=== PATIENT | female | born 1990 | race Caucasian/White ===

== ENCOUNTER 2016-12-20 00:14 | Emergency (ER) | payer OTHER ==
[~2016-12-20] VITALS: Ht 154.9 cm; Wt 65.8 kg
[~2016-12-20 00:14] MED LIST: AMOXICILLIN500 M2 PO; AMOXICILLIN500 MG PO; ATARAX25 MG PO; BACTRIM DS 8001 TA1 PO; BENADRYL25 MG PO; CIPRO250 MG PO; CIPROFLOXACIN500 MG PO; CLEOCIN150 MG PO; CLINDAMYCIN HC300 MG PO; DIFLUCAN150 MG PO; DOXYCYCLINE100 M2 PO; EPI-PEN1 MG/ML; EXCEDRIN EXTRA1 EACH PO; FIORICET 325 MG1 TAB PO; FIORICET 50-301 EACH PO; FLAGYL500 MG PO; FLONASE 0.05% 121 EA NAS; FLUCONAZOLE100 MG PO; HYDROCODONE BIT1 T11 PO; HYDROCORTISONE30 GM PO; IBU800 MG PO; KEFLEX500 M1 PO; KEFLEX500 MG PO; MACROBID100 M1 PO; MOTRIN800 MG PO; MUCINEX600 MG PO; MULTI VITAMINS1 TAB PO; MULTIPLE VITAMI1 CAP PO; NITROFURANTOIN100 MG PO; PEN-VEE K500 MG PO; PEPCID20 MG PO; PREDNICOT20 MG PO; PREDNISONE20 MG PO; PRENATAL1 TA3 PO; TRAMADOL HCL50 MG PO; VIBRA-TAB100 MG PO; VIBRAMYCIN100 MG PO; ZITHROMAX Z PA250 MG PO; ZOFRAN ODT4 MG SL
[2016-12-20] MEDS ORDERED: Fioricet 325 MG1 TAB PO (01:35)
== END 2016-12-20 01:51 | disposition home or self-care (01) ==
LOC: ED 00:14
DX: G43.909 Migraine, unspecified, not intractable, without status migrainosus (principal); F17.200 Nicotine dependence, unspecified, uncomplicated; Z91.030 Bee allergy status; Z79.899 Other long term (current) drug therapy

== ENCOUNTER 2018-10-15 15:58 | Emergency (ER) | payer OTHER ==
[~2018-10-15] VITALS: Ht 154.9 cm; Wt 65.8 kg
[~2018-10-15 15:58] MED LIST changes: +Fioricet 325 MG1 TAB PO
[2018-10-15 15:59] VITALS: BP 122/79
[2018-10-15] MEDS ORDERED: ACYCLOVIR800 MG PO (16:58)
[2018-10-15 17:08] LABS: BILIRUBIN NEGATIVE (NEGATIVE); BLOOD 1+ (NEGATIVE); CLARITY CLEAR (CLEAR); COLOR YELLOW (YELLOW); GLUCOSE NEGATIVE (NEGATIVE); KETONE NEGATIVE (NEGATIVE); LEUKO ESTERASE NEGATIVE (NEGATIVE); NITRITE NEGATIVE (NEGATIVE); SPECIFIC GRAVITY 1.025 (1.005-1.030); UROBILINOGEN 0.2 E.U./dl (0.2-1.0)
[2018-10-15 17:16] LABS: BACTERIA TRACE; EPITHELIAL CELLS 0-2; MUCOUS 1+; WBC 0-2 wbc/hpf (0-5)
[2018-12-19] MEDS ORDERED: AMINOPHYLLIN200 MG PO (22:33)
== END 2018-10-15 17:45 | disposition home or self-care (01) ==
LOC: ED 15:58
PROVIDERS: Nurse Practitioner Family
DX: N76.6 Ulceration of vulva (principal); F17.200 Nicotine dependence, unspecified, uncomplicated; Z91.030 Bee allergy status; Z79.899 Other long term (current) drug therapy

== ENCOUNTER 2018-12-14 01:12 | Emergency (ER) | payer OTHER ==
[~2018-12-14] VITALS: Ht 154.9 cm; Wt 68.0 kg
[~2018-12-14 01:12] MED LIST changes: +ACYCLOVIR800 MG PO
[2018-12-14 01:15] VITALS: BP 117/60
[2018-12-14 02:03] LABS: BILIRUBIN NEGATIVE (NEGATIVE); BLOOD 3+ (NEGATIVE); CLARITY SL CLOUDY (CLEAR); COLOR ORANGE (YELLOW); GLUCOSE NEGATIVE (NEGATIVE); KETONE NEGATIVE (NEGATIVE)
[2018-12-14 02:04] LABS: LEUKO ESTERASE NEGATIVE (NEGATIVE); NITRITE POSITIVE (NEGATIVE); UROBILINOGEN 0.2 E.U./dl (0.2-1.0)
[2018-12-14 02:09] LABS: BACTERIA 2+; RBC 41-50 rbc/hpf (0-2); WBC 21-30 wbc/hpf (0-5)
[2018-12-19] MEDS ORDERED: AMINOPHYLLIN200 MG PO (22:33)
[2019-02-28] MEDS ORDERED: ROBAXIN500 M1 PO (22:41)
[2019-02-28] MEDS ORDERED: IBUPROFEN600 MG PO (22:41)
== END 2018-12-14 02:34 | disposition home or self-care (01) ==
LOC: ED 01:12
PROVIDERS: Nurse Practitioner Family
DX: N39.0 Urinary tract infection, site not specified (principal); F17.200 Nicotine dependence, unspecified, uncomplicated; G43.909 Migraine, unspecified, not intractable, without status migrainosus; Z91.030 Bee allergy status; Z79.899 Other long term (current) drug therapy

== ENCOUNTER 2019-05-06 21:53 | Emergency (ER) | payer OTHER ==
[~2019-05-06] VITALS: Wt 73.9 kg
[~2019-05-06 21:53] MED LIST changes: +AMINOPHYLLIN200 MG PO; +IBUPROFEN600 MG PO; +ROBAXIN500 M1 PO
[2019-05-06 21:54] VITALS: BP 138/81
[2019-05-06 22:54] LABS: BASO % 0.3 % (0.0-1.0); EOS # 0.1 10*3/uL (0.0-0.4); EOS % 1.1 % (1.0-4.0); HEMATOCRIT 41.3 % (37.0-47.0); HEMOGLOBIN 13.5 g/dl (12.0-16.0); LYMPH # 2.3 10*3/uL (1.3-4.4); LYMPH % 30.9 % (27.0-41.0); MEAN CELL VOLUME 94.5 fl (81.0-99.0); MEAN CORPUSCULAR HGB 30.9 pg (27.0-31.0); MEAN CORPUSCULAR HGB CONC 32.7 g/dl (33.0-37.0); MEAN PLATELET VOLUME 9.4 fl (9.6-12.3); MONO # 0.4 10*3/uL (0.1-1.0); MONO % 5.8 % (3.0-9.0); NEUT # 4.7 10*3/uL (2.3-7.9); NEUT % 61.4 % (47.0-73.0); PLATELET COUNT AUTOMATED 234 10*3/uL (130-400); RED BLOOD COUNT 4.37 10*6/uL (4.10-5.10); RED CELL DISTRI WIDTH 13.1 % (0-14.5); WHITE BLOOD COUNT 7.6 10*3/uL (4.8-10.8)
[2019-05-06 22:56] LABS: BILIRUBIN NEGATIVE (NEGATIVE); BLOOD NEGATIVE (NEGATIVE); CLARITY SL CLOUDY (CLEAR); COLOR YELLOW (YELLOW); GLUCOSE NEGATIVE (NEGATIVE); KETONE NEGATIVE (NEGATIVE); LEUKO ESTERASE TRACE (NEGATIVE); NITRITE NEGATIVE (NEGATIVE); SPECIFIC GRAVITY 1.025 (1.005-1.030); UROBILINOGEN 0.2 E.U./dl (0.2-1.0)
[2019-05-06 23:06] LABS: EPITHELIAL CELLS 16-20; RBC 0-2 rbc/hpf (0-2); WBC 21-30 wbc/hpf (0-5)
[2019-05-06 23:07] LABS: BACTERIA 4+
[2019-05-06 23:11] LABS: ALBUMIN 3.9 gm/dl (3.1-4.5); ALKALINE PHOSPHATASE 77 U/L (45-117); BUN 11 mg/dl (7-24); CHLORIDE 108 mmol/L (98-107); CREATININE 0.73 mg/dL (0.55-1.02); LIPASE 212 U/L (73-393); POTASSIUM 3.4 mmol/L (3.5-5.1); SGOT/AST 14 IU/L (3-35); SGPT/ALT 19 U/L (12-78); SODIUM 135 mmol/L (136-145); TOTAL PROTEIN 7.7 gm/dL (6.4-8.2)
[2019-05-06 23:12] LABS: BETA-HCG, QUANT < 1.0 mIU/mL (1-3)
== END 2019-05-07 00:20 | disposition home or self-care (01) ==
LOC: ED 21:53
PROVIDERS: Nurse Practitioner Family
DX: R10.30 Lower abdominal pain, unspecified (principal); N89.8 Other specified noninflammatory disorders of vagina; F17.200 Nicotine dependence, unspecified, uncomplicated; Z91.030 Bee allergy status; Z79.899 Other long term (current) drug therapy

== ENCOUNTER 2019-06-25 21:59 | Inpatient (IN) | payer OTHER ==
[~2019-06-25] VITALS: Ht 154.9 cm; Wt 74.6 kg
[2019-06-25 22:02] VITALS: BP 132/75
[2019-06-25 22:21] LABS: BILIRUBIN NEGATIVE (NEGATIVE); BLOOD 2+ (NEGATIVE); CLARITY CLOUDY (CLEAR); COLOR YELLOW (YELLOW); GLUCOSE NEGATIVE (NEGATIVE); KETONE NEGATIVE (NEGATIVE); LEUKO ESTERASE 3+ (NEGATIVE); NITRITE POSITIVE (NEGATIVE); PH 6.5 (5.0-9.0); UROBILINOGEN 0.2 E.U./dl (0.2-1.0)
[2019-06-25 22:43] LABS: WBC TNTC wbc/hpf (0-5)
[2019-06-25 23:14] LABS: BASO % 0.1 % (0.0-1.0); EOS % 0.3 % (1.0-4.0); HEMOGLOBIN 13.3 g/dl (12.0-16.0); LYMPH # 1.1 10*3/uL (1.3-4.4); LYMPH % 10.2 % (27.0-41.0); MEAN CELL VOLUME 94.7 fl (81.0-99.0); MEAN CORPUSCULAR HGB 32.3 pg (27.0-31.0); MEAN CORPUSCULAR HGB CONC 34.1 g/dl (33.0-37.0); MEAN PLATELET VOLUME 9.5 fl (9.6-12.3); MONO # 0.8 10*3/uL (0.1-1.0); MONO % 7.9 % (3.0-9.0); NEUT # 8.4 10*3/uL (2.3-7.9); NEUT % 81.1 % (47.0-73.0); PLATELET COUNT AUTOMATED 158 10*3/uL (130-400); RED BLOOD COUNT 4.12 10*6/uL (4.10-5.10); RED CELL DISTRI WIDTH 13.3 % (0-14.5); WHITE BLOOD COUNT 10.3 10*3/uL (4.8-10.8)
[2019-06-25 23:31] LABS: ALBUMIN 3.7 gm/dl (3.1-4.5); ALKALINE PHOSPHATASE 69 U/L (45-117); BUN 11 mg/dl (7-24); CHLORIDE 106 mmol/L (98-107); POTASSIUM 3.8 mmol/L (3.5-5.1); SGOT/AST 12 IU/L (3-35); SGPT/ALT 19 U/L (12-78); SODIUM 138 mmol/L (136-145); TOTAL PROTEIN 7.1 gm/dL (6.4-8.2)
[2019-06-26] VITALS: BP 119/71
[2019-06-26 02:10] VITALS: BP 119/71
--- NOTE | 2019-06-26 02:10 | NUR ---
A 29, admitted to 5E, under the services of EDNA Sylvester DO with a diagnosis of PYELONEPHRITIS. Chief complaint is RIGHT FLANK PAIN, BURNING WITH URINATION. Patient arrived via ambulatory from ER. Monitor applied. Initial assessment completed. Vital signs taken and recorded. EDNA SYLVESTER DO notified of admission to the unit. Orders received. See assessment for past medical history, medications and allergies. Patient and/or family oriented to unit. visitation policy reviewed. Clothing/patient valuable form completed. YAYO BELL
[2019-06-26] MEDS ORDERED: ZOVIRAX800 MG PO (02:35)
[2019-06-26] MEDS ORDERED: VALTREX500 MG PO (02:36)
--- NOTE | 2019-06-26 03:30 | NUR ---
PATIENT HAD CALL LIGHT ON. WALKED INTO ROOM AND SHE WAS HOLDING HER ARM. IV INFILTRATED AND LEFT FOREARM EDEMATOUS. IV FLUIDS STOPPED AND IV REMOVED. ICE APPLIED TO AREA. NEW 22G INSERTED INTO RIGHT ARM BY FRANSISCO FARRELL RN. WILL CONTINUE TO MONITOR. CALL LIGHT IN REACH.
--- NOTE | 2019-06-26 03:39 | NUR ---
NEW IV STARTED IN THE RIGHT ARM. #22 GAUGE. GREAT BLOOD RETURN.. WILL MONITOR
--- NOTE | 2019-06-26 06:35 | NUR ---
PATIENT MEDICATED WITH NORCO FOR COMPLAINTS OF A HEADACHE AND BACK HURTING. WILL CONTINUE TO MONITOR.
[2019-06-26 08:00] VITALS: BP 122/74
--- NOTE | 2019-06-26 08:47 | NUR ---
2MG MORPHINE GIVEN FOR C/O PAIN TO FLANK AREA.04/12.
[2019-06-26 12:00] VITALS: BP 127/69
--- NOTE | 2019-06-26 14:32 | NUR ---
PAIN MEDICATION SEEMS EFFECTIVE. PT RESTING WITH EYES CLOSED. RESPS EASY ON RA. NO DISTRESS NOTED.CALL LIGHT IN REACH.
[2019-06-26 16:00] VITALS: BP 109/65
[2019-06-26 20:00] VITALS: BP 125/70
--- NOTE | 2019-06-26 21:13 | NUR ---
PATIENT MEDICATED WITH TYLENOL FOR A TEMP OF 101.2. WILL CHECK EFFECTIVNESS.
--- NOTE | 2019-06-26 21:22 | NUR ---
NOTIFIED DR. NAGY OF PATIENTS TEMP, 101.2 AND PATIENT HR NOW IN THE 120S. SEE NEW ORDERS.
--- NOTE | 2019-06-26 22:38 | NUR ---
PATIENT MEDICATED WITH TYLENOL FOR A TEMP OF 101.2. WILL CHECK EFFECTIVENESS.
--- NOTE | 2019-06-26 23:30 | NUR ---
PATIENT C/O 6/10 PAIN TO HER RIGHT FLANK. PRN NOCRO GIVEN PER ORDER. WILL MONITOR FOR EFFECTIVENESS.
[2019-06-27] VITALS: BP 117/69
--- NOTE | 2019-06-27 00:25 | NUR ---
PER PATIENT PRN NORCO EFFECTIVE.
--- NOTE | 2019-06-27 03:39 | NUR ---
24 HR chart check completed.
--- NOTE | 2019-06-27 03:50 | NUR ---
PATIENT SLEEPING QUIETLY IN BED. IV FLUIDS INFUSING ORDERED. NO ACUTE DISTRESS NOTED. CALL LIGHT WITHIN REACH. WILL MONITOR.
--- NOTE | 2019-06-27 06:26 | NUR ---
PATIENT C/O 10 RIGHT FLANK PAIN. PATIENT MEDICATED WITH PRN MORPHINE PER ORDER. WILL MONITOR FOR EFFECTIVENESS.
[2019-06-27 07:13] LABS: BASO % 0.1 % (0.0-1.0); EOS % 0.3 % (1.0-4.0); HEMATOCRIT 35.6 % (37.0-47.0); HEMOGLOBIN 11.8 g/dl (12.0-16.0); LYMPH # 1.1 10*3/uL (1.3-4.4); LYMPH % 10.5 % (27.0-41.0); MEAN CELL VOLUME 95.4 fl (81.0-99.0); MEAN CORPUSCULAR HGB 31.6 pg (27.0-31.0); MEAN CORPUSCULAR HGB CONC 33.1 g/dl (33.0-37.0); MEAN PLATELET VOLUME 10.2 fl (9.6-12.3); MONO # 1.2 10*3/uL (0.1-1.0); MONO % 10.6 % (3.0-9.0); NEUT # 8.4 10*3/uL (2.3-7.9); NEUT % 77.9 % (47.0-73.0); PLATELET COUNT AUTOMATED 150 10*3/uL (130-400); RED BLOOD COUNT 3.73 10*6/uL (4.10-5.10); RED CELL DISTRI WIDTH 13.6 % (0-14.5); WHITE BLOOD COUNT 10.8 10*3/uL (4.8-10.8)
[2019-06-27 07:37] LABS: BUN 6 mg/dl (7-24); CHLORIDE 107 mmol/L (98-107); CHOLESTEROL 112 mg/dL (<200); CREATININE 0.48 mg/dL (0.55-1.02); PHOSPHOROUS 2.6 mg/dL (2.5-4.9); POTASSIUM 3.6 mmol/L (3.5-5.1); SODIUM 138 mmol/L (136-145)
[2019-06-27 07:40] LABS: VITAMIN D, 25-HYDROXY 29.6 ng/mL (30-100)
[2019-06-27 07:49] LABS: FREE T4 1.06 ng/dl (0.76-1.46); HDL CHOLESTEROL 34 mg/dl (40-60); LDL CHOLESTEROL 66 mg/dL (9-159); THYROID STIM HORMONE (HS) 0.945 uIU/ml (0.358-4.75); TRIGLYCERIDES 61 mg/dl (<150); VLDL CHOLESTEROL 12 mg/dL (6-40)
[2019-06-27 08:00] VITALS: BP 119/75
[2019-06-27 12:00] VITALS: BP 120/77
--- NOTE | 2019-06-27 12:13 | NUR ---
Allergist Immunologist in to talk to patient. Patient states lives at HOME with SISTER. There are FEW steps in the home. Physician: BEAU GERBER [facility]acy: [facility] Home health services: NONE Patient's level of ADLs: INDEPENDENT Patient has working utilities: YES DME: NONE Follow-up physician's appointment after d/c: WILL BE MADE BY HOSPITALIST NURSE DIRECTOR ON DISCHARGE Does patient want to access PORTAL?: NO Discharge plan PT LIVES AT HOME WITH HER SISTER AND IS INDEPENDENT IN HER CARE. DENIES SHE WILL HAVE ANY NEEDS ON DISCHARGE. WILL CONTINUE TO FOLLOW. WILL HAVE A RIDE HOME PER PT.. RANDA DIAMOND
--- NOTE | 2019-06-27 14:19 | NUR ---
PATIENT MEDICATED WITH TYLENOL FOR A TEMP OF 99.5. WILL CONTINUE TO MONITOR.
--- NOTE | 2019-06-27 14:41 | NUR ---
PATIENT RIPPED OUT IV. NEW IV STARTED IN LAC.
[2019-06-27 16:00] VITALS: BP 120/75
--- NOTE | 2019-06-27 19:00 | NUR ---
ASSUMED CARE FOR THIS PT AT THIS TIME. PT DENIES DYSURIA. CALL LIGHT IN REACH.
[2019-06-27 20:00] VITALS: BP 119/73
[2019-06-28] VITALS: BP 125/84
--- NOTE | 2019-06-28 00:57 | NUR ---
24 HR chart check completed.
--- NOTE | 2019-06-28 05:39 | NUR ---
TYLENOL GIVEN PER REQUEST FOR RIGHT FLANK PAIN PER PT. RATED "6-7".
[2019-06-28 08:00] VITALS: BP 108/69
--- NOTE | 2019-06-28 08:27 | NUR ---
NORCO 5/325 MG GIVEN FOR C/O RIGHT FLANK PAIN,03/13.
[2019-06-28] MEDS ORDERED: AMINOPHYLLIN200 MG PO (09:57)
[2019-06-28] MEDS ORDERED: VITAMIN D32000 UNI1 PO (09:57)
[2019-06-28] MEDS ORDERED: PHARMASSURE V500 MCG PO (09:57)
[2019-06-28] MEDS ORDERED: NORCO 5-325 TA1 EACH PO (09:57)
--- NOTE | 2019-06-28 10:49 | NUR ---
Discharge instructions reviewed with patient/family. Patient receptive and verbalizes understanding. Follow-up care arranged. Written instructions given to patient/family. HARRIET ERIC
== END 2019-06-28 10:49 | disposition home or self-care (01) | DRG 872 ==
LOC: ED 21:59 → 5E 06-26 01:30 → EDHOLD 06-26 01:30 → 5E 06-26 01:42
PROVIDERS: Emergency Medicine; Internal Medicine; ADMIT Internal Medicine
DX: A41.9 Sepsis, unspecified organism (principal); N12 Tubulo-interstitial nephritis, not specified as acute or chronic; E44.0 Moderate protein-calorie malnutrition; G43.909 Migraine, unspecified, not intractable, without status migrainosus; B96.20 Unspecified Escherichia coli [E. coli] as the cause of diseases classified elsewhere; Z87.891 Personal history of nicotine dependence; Z91.030 Bee allergy status; Z91.81 History of falling; Z87.440 Personal history of urinary (tract) infections; Z87.01 Personal history of pneumonia (recurrent); Z98.891 History of uterine scar from previous surgery; Z71.6 Tobacco abuse counseling; Z68.31 Body mass index [BMI] 31.0-31.9, adult

== ENCOUNTER 2020-08-06 01:23 | Emergency (ER) | payer OTHER ==
[~2020-08-06 01:23] MED LIST changes: +NORCO 5-325 TA1 EACH PO; +PHARMASSURE V500 MCG PO; +VALTREX500 MG PO; +VITAMIN D32000 UNI1 PO; +ZOVIRAX800 MG PO
[2020-08-06 01:43] VITALS: BP 134/84
== END 2020-08-06 02:20 | disposition home or self-care (01) ==
LOC: ED 01:23
DX: S05.02XA Injury of conjunctiva and corneal abrasion without foreign body, left eye, initial encounter (principal); G43.909 Migraine, unspecified, not intractable, without status migrainosus; F14.90 Cocaine use, unspecified, uncomplicated; F17.200 Nicotine dependence, unspecified, uncomplicated; Z91.013 Allergy to seafood; Z79.899 Other long term (current) drug therapy; Z79.2 Long term (current) use of antibiotics; Z98.890 Other specified postprocedural states; Z97.3 Presence of spectacles and contact lenses; X58.XXXA Exposure to other specified factors, initial encounter; Y93.89 Activity, other specified; Y92.89 Other specified places as the place of occurrence of the external cause; Y99.8 Other external cause status

== ENCOUNTER → 2020-08-22 | Outpatient (CLI) | payer OTHER ==
[~2020-08-22] MED LIST changes: +Motrin,Rufen800 MG PO
== END | disposition home or self-care (01) ==
LOC: COVID19 12:23
PROVIDERS: ATTEND Internal Medicine
DX: Z20.828 Contact with and (suspected) exposure to other viral communicable diseases (principal)

== ENCOUNTER 2020-08-29 15:54 | Emergency (ER) | payer OTHER ==
[~2020-08-29] VITALS: Wt 72.6 kg
[~2020-08-29 15:54] MED LIST changes: -Motrin,Rufen800 MG PO
[2020-08-29 15:58] VITALS: BP 109/40
[2020-08-29] MEDS ORDERED: Motrin,Rufen800 MG PO (17:24)
== END 2020-08-29 17:23 | disposition home or self-care (01) ==
LOC: ED 15:54
DX: S93.602A Unspecified sprain of left foot, initial encounter (principal); Z91.030 Bee allergy status; Z79.899 Other long term (current) drug therapy; X58.XXXA Exposure to other specified factors, initial encounter; Y93.89 Activity, other specified; Y92.89 Other specified places as the place of occurrence of the external cause; Y99.8 Other external cause status; G43.909 Migraine, unspecified, not intractable, without status migrainosus

== ENCOUNTER 2020-12-09 20:44 | Emergency (ER) | payer OTHER ==
[~2020-12-09] VITALS: Ht 157.4 cm; Wt 78.0 kg
[~2020-12-09 20:44] MED LIST changes: +Motrin,Rufen800 MG PO
[2020-12-09 20:55] VITALS: BP 136/84
[2020-12-09] MEDS ORDERED: KETOROLAC10 MG PO (22:44)
[2020-12-09] MEDS ORDERED: CYCLOBENZAPRINE10 MG PO (22:44)
== END 2020-12-09 23:12 | disposition home or self-care (01) ==
LOC: ED 20:44
DX: S13.4XXA Sprain of ligaments of cervical spine, initial encounter (principal); S70.02XA Contusion of left hip, initial encounter; S09.90XA Unspecified injury of head, initial encounter; M25.511 Pain in right shoulder; G43.909 Migraine, unspecified, not intractable, without status migrainosus; Z91.030 Bee allergy status; Z79.899 Other long term (current) drug therapy; Z98.890 Other specified postprocedural states; V89.2XXA Person injured in unspecified motor-vehicle accident, traffic, initial encounter; Y93.89 Activity, other specified; Y92.89 Other specified places as the place of occurrence of the external cause; Y99.8 Other external cause status

== ENCOUNTER 2021-02-18 21:25 | Emergency (ER) | payer OTHER ==
[~2021-02-18] VITALS: Ht 165.1 cm; Wt 73.5 kg
[~2021-02-18 21:25] MED LIST changes: +CYCLOBENZAPRINE10 MG PO; +KETOROLAC10 MG PO
[2021-02-18 21:29] VITALS: BP 134/65
[2021-02-18 22:13] LABS: BILIRUBIN Negative (Negative); BLOOD Negative (Negative); CLARITY Cloudy (Clear); COLOR Yellow (Yellow); GLUCOSE Negative (Negative); KETONE Negative (Negative); LEUKO ESTERASE Trace (Negative); NITRITE Negative (Negative); PH 6.5 (4.5-8.0); SPECIFIC GRAVITY >= 1.030 (1.001-1.030); UROBILINOGEN 0.2 E.U./dl (0.0-1.0)
[2021-02-18 22:34] LABS: BACTERIA 2+; EPITHELIAL CELLS 21-30
[2021-02-18] MEDS ORDERED: CIPRO500 MG PO (22:48)
== END 2021-02-18 23:24 | disposition home or self-care (01) ==
LOC: ED 21:25
PROVIDERS: Internal Medicine
DX: N39.0 Urinary tract infection, site not specified (principal); Z91.030 Bee allergy status; Z79.899 Other long term (current) drug therapy; Z98.890 Other specified postprocedural states

== ENCOUNTER 2021-04-20 20:14 | Emergency (ER) | payer OTHER ==
[~2021-04-20] VITALS: Ht 154.9 cm; Wt 77.1 kg
[~2021-04-20 20:14] MED LIST changes: +CIPRO500 MG PO
[2021-04-20 20:37] VITALS: BP 117/67
[2021-04-20] MEDS ORDERED: MEDROL DOSEPAK4 MG PO (21:52)
== END 2021-04-20 22:10 | disposition home or self-care (01) ==
LOC: ED 20:14
DX: L23.7 Allergic contact dermatitis due to plants, except food (principal); G43.909 Migraine, unspecified, not intractable, without status migrainosus; Z91.030 Bee allergy status; Z79.899 Other long term (current) drug therapy; Z87.891 Personal history of nicotine dependence; Z98.890 Other specified postprocedural states

== ENCOUNTER 2021-07-22 18:08 | Emergency (ER) | payer OTHER ==
[~2021-07-22] VITALS: Ht 157.4 cm; Wt 68.0 kg
[~2021-07-22 18:08] MED LIST changes: +MEDROL DOSEPAK4 MG PO
[2021-07-22 19:14] VITALS: BP 129/79
[2021-07-22 20:06] LABS: BILIRUBIN Negative (Negative); BLOOD Negative (Negative); CLARITY Cloudy (Clear); COLOR Yellow (Yellow); GLUCOSE Negative (Negative); KETONE Trace (Negative); LEUKO ESTERASE Trace (Negative); NITRITE Negative (Negative); PH 5.5 (4.5-8.0)
[2021-07-22 20:22] LABS: BACTERIA 1+; EPITHELIAL CELLS TNTC
== END 2021-07-22 20:15 | disposition home or self-care (01) ==
LOC: ED 18:08
PROVIDERS: Physician Assistant
DX: Z23 Encounter for immunization (principal); Z91.030 Bee allergy status; F17.200 Nicotine dependence, unspecified, uncomplicated

== ENCOUNTER → 2022-06-17 | Outpatient (CLI) | payer OTHER ==
[2022-06-17 15:21] LABS: HEMATOCRIT 45.4 % (37.0-47.0); MEAN CELL VOLUME 95.4 fl (81.0-99.0); MEAN CORPUSCULAR HGB 31.7 pg (27.0-31.0); MEAN CORPUSCULAR HGB CONC 33.3 g/dl (33.0-37.0); MEAN PLATELET VOLUME 9.1 fl (9.6-12.3); RED BLOOD COUNT 4.76 10*6/uL (4.10-5.10); RED CELL DISTRI WIDTH 12.5 % (0-14.5); WHITE BLOOD COUNT 5.8 10*3/uL (4.8-10.8)
[2022-06-17 15:41] LABS: ALKALINE PHOSPHATASE 79 U/L (45-117); BUN 10 mg/dl (7-24); CHLORIDE 110 mmol/L (98-107); CHOLESTEROL 183 mg/dL (<200); POTASSIUM 3.8 mmol/L (3.5-5.1); SGOT/AST 10 IU/L (3-35); SGPT/ALT 25 U/L (12-78); SODIUM 138 mmol/L (136-145); TOTAL PROTEIN 7.3 gm/dL (6.4-8.2); TRIGLYCERIDES 133 mg/dl (<150)
[2022-06-17 15:47] LABS: LDL CHOLESTEROL 117 mg/dL (9-159)
[2022-06-17 15:49] LABS: BETA-HCG, QUANT < 1.0 mIU/mL (1-3)
[2022-06-17 17:06] LABS: VITAMIN D, 25-HYDROXY 33.7 ng/mL (30-100)
== END | disposition home or self-care (01) ==
LOC: LAB 14:57
PROVIDERS: ATTEND Family Medicine
DX: E03.9 Hypothyroidism, unspecified (principal); E55.9 Vitamin D deficiency, unspecified; R53.83 Other fatigue; R63.5 Abnormal weight gain; N92.0 Excessive and frequent menstruation with regular cycle

== ENCOUNTER 2022-06-28 02:48 | Emergency (ER) | payer OTHER ==
[~2022-06-28] VITALS: Ht 167.6 cm; Wt 90.7 kg
[2022-06-28 03:26] LABS: BASO % 0.3 % (0.0-1.0); EOS # 0.1 10*3/uL (0.0-0.4); EOS % 1.3 % (1.0-4.0); HEMATOCRIT 44.3 % (37.0-47.0); LYMPH # 2.3 10*3/uL (1.3-4.4); LYMPH % 29.9 % (27.0-41.0); MEAN CELL VOLUME 95.5 fl (81.0-99.0); MEAN CORPUSCULAR HGB 32.5 pg (27.0-31.0); MEAN CORPUSCULAR HGB CONC 34.1 g/dl (33.0-37.0); MEAN PLATELET VOLUME 9.4 fl (9.6-12.3); MONO # 0.5 10*3/uL (0.1-1.0); NEUT # 4.6 10*3/uL (2.3-7.9); NEUT % 60.8 % (47.0-73.0); PLATELET COUNT AUTOMATED 199 10*3/uL (130-400); RED BLOOD COUNT 4.64 10*6/uL (4.10-5.10); RED CELL DISTRI WIDTH 13.2 % (0-14.5); WHITE BLOOD COUNT 7.6 10*3/uL (4.8-10.8)
[2022-06-28 03:37] LABS: ACT PARTIAL THROMBO TIME 28.4 SECONDS (20.0-32.1)
[2022-06-28 03:42] LABS: ALKALINE PHOSPHATASE 71 U/L (45-117); BUN 10 mg/dl (7-24); CHLORIDE 110 mmol/L (98-107); CPK 73 U/L (26-192); CREATININE 0.42 mg/dL (0.55-1.02); POTASSIUM 3.3 mmol/L (3.5-5.1); SGOT/AST 17 IU/L (3-35); SGPT/ALT 34 U/L (12-78); SODIUM 141 mmol/L (136-145); TOTAL PROTEIN 7.2 gm/dL (6.4-8.2)
[2022-06-28 03:47] LABS: URINE AMPHETAMINES < 1000 (1000ng/ml); URINE BARBITURATES < 200 (200ng/ml); URINE BENZODIAZEPINES < 200 (200ng/ml); URINE CANNABINOIDS (THC) < 50 (50ng/ml); URINE COCAINE < 300 (300ng/ml); URINE METHADONE < 300 (300ng/ml); URINE OPIATES < 300 (300ng/ml)
[2022-06-28 04:03] LABS: BILIRUBIN Negative (Negative); BLOOD Negative (Negative); CLARITY Clear (Clear); COLOR Yellow (Yellow); GLUCOSE Negative (Negative); KETONE Negative (Negative); LEUKO ESTERASE Negative (Negative); NITRITE Negative (Negative); PH 7.5 (4.5-8.0); SPECIFIC GRAVITY <= 1.005 (1.001-1.030); UROBILINOGEN 0.2 E.U./dl (0.0-1.0)
[2022-06-28 04:04] LABS: URINE PHENCYCLIDINE < 25 (25ng/ml)
[2022-06-28 04:09] LABS: RBC 0-2 rbc/hpf (0-2)
[2022-06-28 05:50] VITALS: BP 125/62
[2022-06-28] MEDS ORDERED: CYCLOBENZAPRINE10 MG PO (06:50)
== END 2022-06-28 07:05 | disposition home or self-care (01) ==
LOC: ED 02:48
PROVIDERS: Family Medicine
DX: R51.9 Headache, unspecified (principal); M54.2 Cervicalgia; M54.9 Dorsalgia, unspecified; Z91.030 Bee allergy status; Z98.890 Other specified postprocedural states; Z87.891 Personal history of nicotine dependence; V49.49XA Driver injured in collision with other motor vehicles in traffic accident, initial encounter; Y93.89 Activity, other specified; Y92.89 Other specified places as the place of occurrence of the external cause; Y99.8 Other external cause status

== ENCOUNTER → 2022-11-03 | Outpatient (CLI) | payer OTHER ==
[2022-11-03 15:42] LABS: ALKALINE PHOSPHATASE 60 U/L (46-116); BUN 12 mg/dl (9-23); CHLORIDE 108 mmol/L (98-107); POTASSIUM 3.5 mmol/L (3.4-5.1); SGPT/ALT 19 U/L (10-49); TOTAL PROTEIN 6.8 gm/dL (6.0-8.0)
== END | disposition home or self-care (01) ==
LOC: LAB 15:06
PROVIDERS: ATTEND Family Medicine
DX: E74.9 Disorder of carbohydrate metabolism, unspecified (principal)

== ENCOUNTER → 2024-07-13 | Outpatient (CLI) | payer OTHER ==
[~2024-07-13] MED LIST changes: +ADDERALL XR15 MG PO; +MELOXICAM15 MG PO
[2024-07-13 16:54] LABS: HEMATOCRIT 44.6 % (37.0-47.0); MEAN CELL VOLUME 95.7 fl (81.0-99.0); MEAN CORPUSCULAR HGB 31.8 pg (27.0-31.0); MEAN CORPUSCULAR HGB CONC 33.2 g/dl (33.0-37.0); RED BLOOD COUNT 4.66 10*6/uL (4.10-5.10); RED CELL DISTRI WIDTH 12.6 % (0-14.5)
[2024-07-13 17:29] LABS: ALKALINE PHOSPHATASE 75 U/L (46-116); BUN 9 mg/dl (9-23); CHLORIDE 105 mmol/L (98-107); CHOLESTEROL 190 mg/dL (<200); FREE T4 1.14 ng/dl (0.89-1.76); LDL CHOLESTEROL 80 mg/dL (9-159); POTASSIUM 3.8 mmol/L (3.4-5.1); SGPT/ALT 9 U/L (5-49); TOTAL PROTEIN 6.9 gm/dL (6.0-8.0); TRIGLYCERIDES 323 mg/dl (<150)
== END | disposition home or self-care (01) ==
LOC: LAB 16:32
PROVIDERS: ATTEND Family Medicine
DX: M16.0 Bilateral primary osteoarthritis of hip (principal); M25.552 Pain in left hip; M25.551 Pain in right hip

== ENCOUNTER 2024-07-14 17:03 | Emergency (ER) | payer OTHER ==
[~2024-07-14] VITALS: Ht 154.9 cm; Wt 70.3 kg
[~2024-07-14 17:03] MED LIST changes: -ADDERALL XR15 MG PO; -MELOXICAM15 MG PO
[2024-07-14 17:26] VITALS: BP 137/77
[2024-07-14] MEDS ORDERED: ADDERALL XR15 MG PO (17:31)
[2024-07-14] MEDS ORDERED: Acetaminophen/Oxycodone 5 MG/325 MG TABLET PO ONE (17:40)
[2024-07-14] MEDS ORDERED: MELOXICAM15 MG PO (17:53)
== END 2024-07-14 18:20 | disposition home or self-care (01) ==
LOC: ED 17:03
DX: M25.552 Pain in left hip (principal); F17.200 Nicotine dependence, unspecified, uncomplicated; Z91.030 Bee allergy status; Z79.899 Other long term (current) drug therapy; Z98.890 Other specified postprocedural states

== ENCOUNTER 2024-09-09 00:28 | Emergency (ER) | payer OTHER ==
[~2024-09-09] VITALS: Ht 154.9 cm; Wt 72.6 kg
[~2024-09-09 00:28] MED LIST changes: +ADDERALL XR15 MG PO; +MELOXICAM15 MG PO
[2024-09-09 00:33] VITALS: BP 117/85
[2024-09-09] MEDS ORDERED: IOHEXOL 300 MG/ML 100 ML VIAL IV ONE (00:50)
[2024-09-09 01:16] LABS: BILIRUBIN Negative (Negative); BLOOD Negative (Negative); CLARITY Clear (Clear); COLOR Yellow (Yellow); GLUCOSE Negative (Negative); KETONE 1+ (Negative); LEUKO ESTERASE Negative (Negative); NITRITE Negative (Negative); SPECIFIC GRAVITY 1.025 (1.001-1.030)
[2024-09-09 01:16] LABS: EOS # 0.1 10*3/uL (0.0-0.4); EOS % 0.8 % (1.0-4.0); HEMATOCRIT 43.7 % (37.0-47.0); MEAN CELL VOLUME 94.6 fl (81.0-99.0); MEAN CORPUSCULAR HGB 32.3 pg (27.0-31.0); MEAN CORPUSCULAR HGB CONC 34.1 g/dl (33.0-37.0); MEAN PLATELET VOLUME 9.3 fl (9.6-12.3); MONO # 0.4 10*3/uL (0.1-1.0); MONO % 4.8 % (3.0-9.0); NEUT # 7.8 10*3/uL (2.3-7.9); NEUT % 87.3 % (47.0-73.0); PLATELET COUNT AUTOMATED 229 10*3/uL (130-400); RED BLOOD COUNT 4.62 10*6/uL (4.10-5.10); RED CELL DISTRI WIDTH 12.6 % (0-14.5); WHITE BLOOD COUNT 8.9 10*3/uL (4.8-10.8)
[2024-09-09 01:23] LABS: URINE AMPHETAMINES Negative (1000ng/ml); URINE BARBITURATES Negative (200ng/ml); URINE BENZODIAZEPINES Negative (200ng/ml); URINE CANNABINOIDS (THC) Negative (50ng/ml); URINE COCAINE Negative (300ng/ml); URINE METHADONE Negative (300ng/ml); URINE OPIATES Negative (300ng/ml); URINE PHENCYCLIDINE Negative (25ng/ml)
[2024-09-09 01:35] LABS: BUN 13 mg/dl (9-23); CHLORIDE 102 mmol/L (98-107); POTASSIUM 3.6 mmol/L (3.4-5.1)
[2024-09-09 01:36] LABS: TOTAL PROTEIN 7.5 gm/dL (6.0-8.0)
[2024-09-09 01:43] LABS: PH >= 9.0 (4.5-8.0)
[2024-09-09 01:44] LABS: ETHYL ALCOHOL < 3.0 mg/dl (<3)
[2024-09-09 01:45] LABS: EPITHELIAL CELLS 31-40; RBC 0-2 rbc/hpf (0-2); WBC 0-2 wbc/hpf (0-5)
[2024-09-09] MEDS ORDERED: LEVOFLOXACIN750 M2 PO (02:55)
== END 2024-09-09 03:20 | disposition home or self-care (01) ==
LOC: ED 00:28
PROVIDERS: Internal Medicine
DX: K52.9 Noninfective gastroenteritis and colitis, unspecified (principal); J18.9 Pneumonia, unspecified organism; G43.909 Migraine, unspecified, not intractable, without status migrainosus; F17.200 Nicotine dependence, unspecified, uncomplicated; Z91.030 Bee allergy status; Z98.890 Other specified postprocedural states; Z79.899 Other long term (current) drug therapy